=== PATIENT | male | born 1965 | race Caucasian/White ===

== ENCOUNTER 2017-03-19 01:11 | Emergency (ER) | payer SELFPAY ==
[~2017-03-19] VITALS: Ht 177.8 cm; Wt 98.1 kg
[2017-03-19 01:21] VITALS: Ht 177.8 cm; Wt 98.1 kg
--- NOTE | 2017-03-19 01:31 | ERPDOC ---
Departure Disposition Decision Date: March 19, 2017 Disposition Decision Time: :33 Disposition: 01 DISCHARGED HOME, SELF-CARE Impression Impression Impression: Primary Impression: Serous otitis media Laterality: right Chronicity: acute Recurrence: not specified as recurrent Qualified Codes: H65.01 - Acute serous otitis media, right ear Additional Impression: Allergic rhinitis Allergic rhinitis trigger: unspecified Allergic rhinitis seasonality: seasonal Qualified Codes: J30.2 - Other seasonal allergic rhinitis Severity: Moderate Condition: Improved Seen By: Physician only Problems/Meds/Labs Reviewed?: Yes Medications reviewed and manag: Yes Additional Instructions: Aleve D, one tablet twice daily for congestion Prednisone 20 mg, one tablet daily for 5 days May use Afrin 3 sprays in each nostril once daily Zyrtec or Claritin 24-hour nonsedating antihistamine, use once daily Follow up care ordered?: Yes Mental Status: Alert Scripts Prednisone (Prednisone) 20 Mg Tablet 20 MG PO DAILY, #5 TAB 0 Refills Prov: MADHU WILLS MD 03/19/17 HPI General Stated Complaint: EAR PAIN Time Seen by Provider: :24 Source: patient Exam Limitations: no limitations HPI Ear Pain Initial Comments Generalized allergic sinus symptoms with periodic ear pain for the past week. Patient has been trying several doses of [id number] medications with no relief. Tonight the patient had increasing pressure in the right ear, and became concerned enough to come to the ER. Patient has no primary physician. Occurred At: home Onset: Gradual Duration: 1 week Location: Right ear Preceding/Associated Symptoms: rhinorrhea, DENIEDS: body aches, chills, congestion, cough, diarrhea, fever, headache, intractable crying, lethargy, nausea, sore throat, tugging at ears, vomiting History of prior infection: No Past History Past Medical History Pt denies signifigant PMH Surgical History Denies Surgeries Social History Smoking Status: Never smoker Does patient use chewing tobac: No Second Hand Exposure: No Substance Use Type: does not use Alcohol Intake: none Record Review Pertinent history updated: Yes Review of Systems Constitutional Constitutional: DENIES: appetite decrease, appetite increase, chills, dizziness , fever, weakness ENMT Ears: DENIES: pain Hearing: DENIES: hearing loss, tinnitus Balance: DENIES: vertigo Mouth/Throat: DENIES: change in swallowing, change in voice, hoarsness, painful swallowing, sore throat Cardiovascular Cardiac: DENIES: chest pain, dyspnea on exertion Rhythm/Rate: DENIES: irregular beat, palpitations, tachycardia Vascular: DENIES: pedal edema Pulmonary Respiratory: DENIES: cough, dyspnea, pleuritic chest pain GI Upper Abdomen: DENIES: dysphagia, heartburn/indigestion, nausea, pain, vomiting Lower Abdomen: DENIES: blood in stool, constipation, diarrhea, pain General: DENIES: burning, dysuria, frequency, pain, urgency Musculoskeletal General: DENIES: cramps, joint pain, joint swelling, pain, weakness Integumentary Skin: DENIES: rash, sores Neurological General: DENIES: headache, numbness, tingling, vertigo, weakness Psychiatric Psychiatric: DENIES: anxiety, depression, nervousness Exam General General Nourishment: well nourished, well developed, appears stated age, no acute distress General Body Habitus: well groomed Vital Signs: RN Vital Signs have been reviewed: Yes ENMT (brief) ENMT: FOUND: TM good light reflex, ear canals clear, mucosa moist, nasal erythema, nasal exudate, nasal swelling, normal dentition, NOT FOUND: TM clear ( left TM is clear, right TM is moderately pressurized with clear fluid behind the membrane, no erythema, no swelling, and both canals are clear bilaterally), pharnyx erythema, tonsillar deviation Neck (brief) Neck Brief: FOUND: trachea midline, NOT FOUND: JVD, adenopathy, spasm, tenderness, thyromegaly Respiratory (brief) Respiratory Brief: FOUND: clear all heredia, equal bilaterally, symmetrical, NOT FOUND: rales, tenderness, wheezes Cardiovascular (brief) Cardiac Brief: FOUND: regular rate, regular rhythm, NOT FOUND: pedal edema Capillary Refill: <2 sec Neurologic RN Documented GCS Eye Opening: Verbal: Motor: Total: Progress Progress Progress Patient appears to have allergic rhinitis with pressurization of the ear. Patient declines pain medication at this time Treated with Sudafed and prednisone in the ER, with instructions for home use MADHU WILLS MD March 19, 2017 01:31
[2017-03-19] MEDS ORDERED: PRED20TA PO (01:36)
[2017-03-19] MEDS ORDERED: PredniSONE 20mg TAB #3 (PrePack) SENT HOME ONE (01:45)
[2017-03-19] MEDS ORDERED: PSEUDOEPHEDRINE 30 MG TABLET PO ONE (01:45)
[2017-03-19 01:57] VITALS: BP 199/115; PULSE 74; RESP 20; TEMP 98.1; O2SAT 95
--- NOTE | 2017-03-19 01:57 | NUR ---
DEPART PT GIVEN DI, NEED FOR F/U FOR BP, AND RX FOR PREDNISONE. VERBALIZES UNDERSTANDING. QUESTIONS ASKED/ANSWERED - DENIES FURTHER QUESTIONS/NEEDS AT THIS TIME. PERSONAL BELONGINGS GATHERER. PT AMBULATED/ESCORTED TO ED EXIT - GAIT STABLE, NO SIGN OF DISTRESS AT THIS TIME.
== END 2017-03-19 01:57 | disposition home or self-care (01) ==
LOC: ED 01:11
DX: H65.01 Acute serous otitis media, right ear (principal); J30.2 Other seasonal allergic rhinitis

== ENCOUNTER 2017-03-25 03:21 | Emergency (ER) | payer SELFPAY ==
[~2017-03-25] VITALS: Ht 177.8 cm; Wt 97.3 kg
[~2017-03-25 03:21] MED LIST: PRED20TA PO
--- OUTSIDE RECORDS SUMMARY | 2017-03-25 03:24 | XMS REPORT | Continuity of Care Document ---
Author Author [facility] Organization [facility] Address Unknown Phone Unavailable Support Name Relationship Address Phone MADHU WILLS MD Caregiver [address] [place] [address] [place] [address] Unavailable CRISTIANE GUZMAN Next Of Kin X X, X X [phone] Insurance Providers Guarantor Danilo Guzman Address [address] [place], [place] [id number] Email DECLINED 03-19-17 Payer Self Pay Subscriber's Name Danilo Guzman Relationship 18 Self Chief Complaint and Reason for Visit Chief Complaint Ear Pain/Injury Reason for Visit [id number] Serous otitis media Allergic rhinitis Problems Active Problems Medical Problem Onset Date Status Allergic rhinitis Unknown Acute High blood pressure Unknown Acute Serous otitis media Unknown Acute Medications Current Home Medications Medication Dose Units Route Directions Days Qty Instructions Start Date Prednisone 20 Mg Tablet 20 Mg Oral Daily 5 Tablet 03/19/17 Social History Query Response Start Date Stop Date Smoking Status Never smoker Hospital Discharge Instructions No hospital discharge instructions. Plan of Care Discharge Date 03/19/17 1:57am Disposition 01 DISCHARGED HOME, SELF-CARE Condition at Discharge Improved Prescriptions See Medication Section Referrals CAMILLE DAVIS DO Address: [address] [phone] Additional Instructions/Education Aleve D, one tablet twice daily for congestion Prednisone 20 mg, one tablet daily for 5 days May use Afrin 3 sprays in each nostril once daily Zyrtec or Claritin 24-hour nonsedating antihistamine, use once daily Follow-up with Dr. Ojeda or any provider at [facility] for further evaluation and recheck of high blood pressure Care Plan and Goals Physician Care Plan Problem: Allergic rhinitis with serous otitis media Goal: Follow up with primary care provider Instructions: Take medications and follow care plan as discussed/written Aleve D, one tablet twice daily for congestion Prednisone 20 mg, one tablet daily for 5 days May use Afrin 3 sprays in each nostril once daily Zyrtec or Claritin 24-hour nonsedating antihistamine, use once daily [facility] and recheck of high blood pressure Zyrtec or Claritin 24-hour nonsedating antihistamine, use once daily Functional Status No functional status results. Allergies, Adverse Reactions, Alerts Allergen Type Severity Reaction Status Last Updated No Known Drug Allergies Allergy Unknown Active 03/19/17 Immunizations Query Response on File Recorded Date/Time Influenza Vaccine Hx NO 03/19/17 1:21am Vital Signs Acute Vital Signs Vital Response Date/Time Temperature (Fahrenheit) 98.1 deg F (96.8 - 99.1) 03/19/2017 1:57am Temperature (Calculated Celsius) 36.50361 degrees C (36.0 - 37.3) 03/19/2017 1:57am Pulse Rate (adult) 74 bpm (60 - 100) 03/19/2017 1:57am Respiratory Rate 20 breaths/min (10 - 20) 03/19/2017 1:57am O2 Sat by Pulse Oximetry 95 % (90 - 100) 03/19/2017 1:57am Blood Pressure 199/115 mm Hg 03/19/2017 1:57am Height (Feet) 5 feet 03/19/2017 1:21am Height (Inches) 10.00 inches 03/19/2017 1:21am Weight (Kilograms) 98.100 kg 03/19/2017 1:21am Body Mass Index (BMI) 31.0 03/19/2017 1:21am Results No known relevant diagnostic tests, laboratory data and/or discharge summary. Procedures No known history of procedures. Encounters Encounter Location Arrival/Admit Date Discharge/Depart Date Attending Provider Registered Emergency Room [facility] 03/19/17 1:11am MADHU WILLS MD Recent Diagnosis
[2017-03-25 03:28] VITALS: Ht 177.8 cm; Wt 97.3 kg
[2017-03-25] MEDS ORDERED: AMOX875T2 PO (03:46)
--- NOTE | 2017-03-25 03:46 | ERPDOC ---
Departure Disposition Decision Date: March 25, 2017 Disposition Decision Time: 03:43 Disposition: 01 DISCHARGED HOME, SELF-CARE Impression Impression Impression: Primary Impression: Otitis media Otitis media type: suppurative Laterality: bilateral Chronicity: acute Recurrence: not specified as recurrent Spontaneous tympanic membrane rupture: without spontaneous rupture Qualified Codes: H66.003 - Acute suppurative otitis media without spontaneous rupture of ear drum, bilateral Additional Impression: Hypertension Hypertension type: essential hypertension Qualified Codes: I10 - Essential ( primary) hypertension Severity: Moderate Condition: Stable Seen By: Physician only Referrals: [facility] 1 Week Patient Instructions: Otitis Media (ED) Problems/Meds/Labs Reviewed?: Yes Medications reviewed and manag: Yes Additional Instructions: You have an ear infection. Take the antibiotics as prescribed. Use tylenol and motrin to control fevers and pain. Take benadryl to help with congestion and nose/ear drainage. You need to follow up with your doctor to treat your high blood pressure. Follow up with your doctor next week. Follow up care ordered?: Yes Mental Status: Alert, Oriented Scripts Amoxicillin (Amoxicillin) 875 Mg Tablet 1 TAB PO Q12H for 7 Days, #14 TAB Prov: GLADYS RICARDO DO 03/25/17 HPI General Chief Complaint: Ear Pain/Injury Stated Complaint: EAR PAIN Time Seen by Provider: 03:37 Source: patient Exam Limitations: no limitations HPI Ear Pain Initial Comments 51yo man presents to the ER [place] for recurrent ear pain. Was seen here recently for this; meds helped initially, but came back abruptly last night, with the end of his steroids. The rest of the meds are causing him to have dry mouth. Occurred At: home Onset: Constant, Getting worse Duration: 1 week Pain Scale: Now & Worst: 6/10 Severity: moderate Location: Left ear, Right ear Preceding/Associated Symptoms: headache, DENIEDS: body aches, chills, congestion, cough, diarrhea, fever, intractable crying, lethargy, nausea, rhinorrhea, sore throat, tugging at ears, vomiting Allergies: Coded Allergies: No Known Drug Allergies (Verified Allergy, Unknown, 03/19/17) Past History Past Medical History Metabolic: hypertension Surgical History Denies Surgeries Social History Does patient use chewing tobac: No Second Hand Exposure: No Substance Use Type: does not use Alcohol Intake: none Review of Systems ENMT Ears: pain, DENIES: drainage, erythema, foreign body Neurological General: headache All other Systems All Other Systems: Reviewed and Negative Exam General General Nourishment: well nourished, well developed, appears stated age, no acute distress, adult, obese General Body Habitus: well groomed Vital Signs: RN Vital Signs have been reviewed: Yes Height (Feet): 5 Height (Inches): 10.00 Fastrak Ear Pain Face: NOT FOUND: bruising, erythema, swelling Eye: pupils equal, pupils reactive, pupils round Jaw: NOT FOUDN: asymmetry Ear : Ear: Bilateral Pinna: NOT FOUND: ecchymosis, erythema, swelling Tragus: NOT FOUND: erythema, swelling Canal: NOT FOUND: cerumen, erythema, exudate Tympanic Membrane: bulging, fluid (Turbid), NOT FOUND: colesteatoma, erythema, mobile, myringotomy tube, obscured, perforation, retracted, scarring Mastoid: NOT FOUND: erythema, swelling Hearing: intact, NOT FOUND: unilateral loss Eyes (brief) Eyes Brief: found: EOMI, PERRL, not found: foreign body, scleral icterus ENMT (brief) ENMT: FOUND: mucosa moist, NOT FOUND: nasal exudate Neck (brief) Neck Brief: FOUND: adenopathy, NOT FOUND: JVD, thyromegaly Respiratory (brief) Respiratory Brief: FOUND: clear all heredia, equal bilaterally, NOT FOUND: rales , symmetrical, wheezes Cardiovascular (brief) Cardiac Brief: FOUND: regular rate, regular rhythm, NOT FOUND: click, gallop, murmur, pedal edema Capillary Refill: <2 sec Neurologic RN Documented GCS Eye Opening: Verbal: Motor: Total: Differential Diagnoses Considering: Eustachian tube dysfuncti, Otitis Externa, Otitis Media, Viral Syndrome Progress Progress Progress Pt with b/l OM, despite adequate treatment. Will give pt first dose of atbx here ; rx to go home. Pt voiced understanding of dx, prognosis, tx, and f/u need. GLADYS RICARDO DO March 25, 2017 03:46
[2017-03-25 03:59] VITALS: BP 198/111; PULSE 83; RESP 18; TEMP 98.3; O2SAT 97
--- NOTE | 2017-03-25 03:59 | NUR ---
DEPART PT GIVEN DI FOR OTITIS MEDIA, AMOXICILLIN, AND F/U. RX PROVIDED FOR AMOXICILLIN. VERBALIZES UNDERSTANDING OF DI, MED, F/U. QUESTIONS ASKED/ANSWERED - DENIES FURTHER QUESTIONS/NEEDS AT THIS TIME. PERSONAL BELONGINGS GATHERED. PT AMBULATED/ESCORTED TO ED EXIT - GAIT STABLE, NO SIGN OF DISTRESS AT THIS TIME.
[2017-03-25] MEDS ORDERED: AMOXICILLIN 875 MG TABLET PO ONE (04:00)
== END 2017-03-25 03:59 | disposition home or self-care (01) ==
LOC: ED 03:21
DX: H66.003 Acute suppurative otitis media without spontaneous rupture of ear drum, bilateral (principal); I10 Essential (primary) hypertension